=== PATIENT | female | born 1970 | race Caucasian/White ===

== ENCOUNTER 2023-06-19 19:54 | Emergency (ER) | payer OTHER, SELFPAY ==
[2023-06-19 20:05] VITALS: BP 114/86
[2023-06-19 22:16] VITALS: BP 151/97
--- NOTE | 2023-06-19 23:03 | ED.GENMED ---
History of Present Illness
General
Chief Complaint: Sleep Disturbances
Source: patient and previous hospital records (Previous ED visits/psychiatry consult 2023 patient presented with acute psychosis-involuntary psychiatric commitment.)
Exam Limitations: none
Time Seen by Provider: 06/19/23 22:13
Nursing documentation reviewed up to this point in time: agreed with
Travel History
Have you had any contact with someone who has COVID-19?: No
Do you have any symptoms of coronavirus? Fever > 100 degrees, chills, cough, shortness of breath, sore throat, loss of taste or smell, muscle aches, or headache?: No
History of Present Illness
History of Present Illness:
This is a 52-year-old woman who has history of schizoaffective disorder, prior episodes of manic behavior/acute psychosis requiring involuntary psychiatric hospitalization January 2020.
She does follow with a psychiatrist, maintained on Wellbutrin and Depakote but has not been following with her therapist for the past several months and admits to significant ongoing stress which she attributes to work-related stress as she works
full-time as a CPA. She admits to increased anxiety over the past several days with inability to sleep for the past 3 days. She has reached out to her therapist and has an online counseling session scheduled for Tuesday, June 21.
She presents tonight with complaints of generalized fatigue, overall not feeling well, poor sleep as well as ongoing significant stress.
She has history of hyperlipidemia, hypertension, hypothyroidism, chronic kidney disease. Maintained on atorvastatin, labetalol, levothyroxine. She states she has been compliant with all medications.
Reports following every 6 months with PCP for routine lab studies with next appointment scheduled for July 05.
She denies alcohol nor drug use.
Past History
Past History
ED Past Medical History: Cancer (Basal cell carcinoma anterior chest wall), HTN, Hypercholesterolemia, Renal failure (Chronic kidney disease), Hypothyroidism and Psychiatric (Bipolar illness/schizoaffective disorder); Negative Arrthythmia
ED Past Surgical History: , Orthopedic (Elbow) and Other (Basal cell carcinoma removal anterior chest wall)
Social History
Tobacco: Non-smoker
Alcohol: Occasional (Very rare alcohol use)
Drug: None
Personal:
Living: with family
Employment: Employed
Family History
Family History: Cancer (Father of cancer) and Other (Noncontributory)
Phy Exam
Physical Exam
Physical Exam:
GENERAL: 52-year-old woman appears her stated age, awake and alert she is moderately irritable with significantly labile emotions, tangential and scattered thought processes. Speaks in an exaggerated manner. Intermittently angry and agitated while
discussing recent as well as post world events but does not appear paranoid nor delusional. She is somewhat redirectable.
Initial vital signs reviewed. Temperature reported at 99 �F. Upon recheck she is afebrile 98.4 �F.
EYE: pupils equal and reactive. anicteric
NECK: Supple, nontender, no meningismus, no significant adenopathy.
ENT: posterior pharynx is clear, oral mucosa is moist. TM clear b/l, nares patent.
CARDIAC: Regular rate and rhythm. no murmur.
LUNGS: Clear breath sounds bilaterally, no acute respiratory distress, no wheezes/rales/rhonchi
ABDOMEN: Soft, nondistended, without focal tenderness, normoactive BS.
NEUROLOGICAL: Alert and oriented x3, no focal neuro deficits. Gait is peralta and steady.
SKIN: Warm and dry, normal color, skin intact. No rash.
MUSCULOSKELETAL: No C/C/E. peripheral pulses are full and equal b/l. No palpable tenderness.
PSYCH: Intermittently anxious and agitated with labile emotions, tangential and scattered thought processes. Speaks in an exaggerated manner. No evidence of hallucinations nor delusions.
Course
Orders/Labs/Results
Orders:
Orders
06/19/23 22:39
Lorazepam [Ativan] 2 mg PO NOW STA
06/19/23 22:40
Urinalysis Reflex To Culture Urgent
Date Specimen was Collected: 06/20/23
Time Specimen was Collected: 01:52
Urine Drug Abuse Screen Urgent
Date Specimen was Collected: 06/20/23
Time Specimen was Collected: 01:52
06/19/23 22:56
Lorazepam [Ativan] 2 mg PO NOW STA
06/19/23 23:08
Alcohol Urgent
Complete Blood Count/With Diff Urgent
Comprehensive Metabolic Panel Urgent
Depakane Urgent
TSH Reflex To Free T4 Urgent
06/20/23 01:50
Lorazepam [Ativan] 2 mg .ROUTE .STK-MED ONE
06/20/23 01:53
Lorazepam [Ativan] 2 mg PO NOW STA
06/20/23 01:54
Lorazepam [Ativan] 2 mg PO NOW STA
06/20/23 06:22
PSYCHIATRY CONSULT Urgent
Consulting Provider: Agustín Singh
Was physician already notified: Yes
Abnormal Lab Results
06/19/23 06/20/23
23:08 01:55
RBC 4.05 L 10^6/uL
(4.20-5.40)
Hgb 11.7 L g/dL
(12.0-16.0)
Hct 32.2 L %
(37.0-47.0)
MCV 79.5 L fL
(81.0-99.0)
Absolute Monos (auto) 0.8 H 10^3/uL
(0.1-0.6)
Monocytes % 10.1 H %
(1.7-9.3)
BUN 23 H mg/dl
(7-17)
Creatinine 1.2 H mg/dL
(0.6-1.0)
Urine Ketones Trace A
(Negative)
Valproic Acid 42.7 L ug/ml
(50.0-120.0)
06/19/23 23:08
06/19/23 23:08
Vital Signs
Initial and Last Documented VS:
Initial Vital Signs
Temp Pulse Resp BP Pulse Ox
99 F 78 22 114/86 98
06/19/23 20:05 06/19/23 20:05 06/19/23 20:05 06/19/23 20:05 06/19/23 20:05
Last Documented Vital Signs
Temp Pulse Resp BP Pulse Ox
98.2 F 75 18 100/65 96
06/20/23 03:09 06/20/23 13:27 06/20/23 13:27 06/20/23 13:27 06/20/23 13:27
MDM/Problems Addressed
Differential Diagnosis Includes:
Concern for recurrent bipolar isak/schizoaffective disorder. Other consideration is hyper/hypothyroidism, electrolyte abnormality.
Will check labs including thyroid functions, Depakote level.
Patient agreeable to a dose of Ativan.
She is intermittently agitated with scattered thought processes but denies suicidal thoughts or plan and does not appear to exhibit any paranoia nor delusions.
She has driven herself to the hospital. She is alone.
I have offered crisis consult which she currently declines. At this point she does not feel she requires urgent psychiatric intervention.
At this point, patient does not appear to be a danger to herself nor others.
Will continue to observe.
Chronic conditions affecting care: Psychiatric illness, Kidney disease and Other (Hypothyroidism)
*Critical Care Note
Total Time (30-74mins, 75-104mins- exclusive of procedures): Not Applicable
Update Note
Update Note:
Patient has been sleeping after oral dose of Ativan.
Labs show very mild but stable anemia. Mildly elevated creatinine of 1.2, similar sporadic elevations noted previously. TSH is normal at 3.21. Urinalysis is unremarkable, UDS is negative.
Valproic acid is slightly subtherapeutic at 42.7. EtOH is negative.
Due to significant concern for acute isak I have placed a consult for psychiatry for this morning. [facility] aware of consult.
ED Attending Note
-
Portions of this chart may have been created with voice recognition software.� Occasional wrong word or��sound alike� substitutions may have occurred due to the inherent limitations of voice recognition software.
Discharge Plan
Departure
Patient Disposition: Home (Routine Discharge)
Date of Disposition: 06/20/23
Time of Disposition: 12:58
Patient with high blood pressure during this ER visit?: No
Condition: Good
Discharge Problem:
Bipolar 1 disorder with moderate isak, Acute insomnia
Prescriptions:
No Action
levothyroxine 50 MCG tablet
50 mcg PO DAILY
atorvastatin 20 MG tablet
20 mg PO DAILY
labetalol 100 MG tablet
100 mg PO BID
bupropion HCl 150 mg Tablet Extended Release 24 Hr
150 mg PO HS
Referrals:
Nadir Connors I., DO [Family Provider] -
Activity Restrictions/Additional Instructions:
You were seen by our psychiatrist, Dr. Spencer. Follow-up with your psychiatrist as outpatient.
Interventions
Interventions:
*Risk Screen - Suicide Last Done: 06/19/23 20:05
*General Assessment Last Done: 06/20/23 02:10
*Neglect/Abuse Screening Last Done: 06/19/23 20:05
ED- Fall Risk Assessment Last Done: 06/20/23 08:42
*ED COVID-19 Vaccine History Last Done: 06/20/23 02:10
*Nursing Disposition Last Done: 06/20/23 13:27
ED-Suicide Risk Assessment Last Done: 06/20/23 02:41
ED- Neurological Assessment Last Done: 06/20/23 03:09
ED-Psychological Assessment Last Done: 06/19/23 22:23
Discharge Date and Time
Discharge Date/Time: 06/20/23 13:29
Print Language: COLOMBIAN
[2023-06-19 23:16] LABS: % Basophils 1.1 % (0-2); % Eosinophils 1.5 % (0-6); % Immature Granulocytes 0.3 % (0-0.5); % Lymphocytes 30.1 % (20.5-51.1); % Monocytes 10.1 % (1.7-9.3); % Neutrophils 56.9 % (42.2-75.2); Absolute Basophils 0.1 10^3/uL (0-0.2); Absolute Eosinophils 0.1 10^3/uL (0-0.7); Absolute Lymphocytes 2.2 10^3/uL (1.2-3.4); Absolute Monocytes 0.8 10^3/uL (0.1-0.6); Absolute Neutrophils 4.2 10^3/uL (1.4-6.5); Hematocrit 32.2 % (37.0-47.0); Hemoglobin 11.7 g/dL (12.0-16.0); Mean Corp Hgb Conc. 36.3 g/dL (33.0-37.0); Mean Corpuscular Hgb 28.9 pg (27.0-31.0); Mean Corpuscular Volume 79.5 fL (81.0-99.0); Mean Platelet Volume 9.7 fL (7.4-10.4); Nucleated Red Blood Cells % 0 %; Platelet Count 208 10^3/uL (130-400); Red Blood Cell Count 4.05 10^6/uL (4.20-5.40); White Blood Cell Count 7.4 10^3/uL (4.8-10.8)
[2023-06-19 23:40] LABS: ALT (SGPT) 23 U/L (0-35); AST (SGOT) 34 U/L (14-36); Albumin 4.7 g/dl (3.5-5.0); Alkaline Phosphatase 84 U/L (38-126); Blood Urea Nitrogen 23 mg/dl (7-17); Calcium 10.1 mg/dl (8.4-10.2); Carbon Dioxide 22 mmol/L (22-30); Chloride 104 mmol/L (98-107); Glucose 86 mg/dl (70-99); Potassium 3.6 mmol/L (3.5-5.1); Sodium 136 mmol/L (135-145); Total Bilirubin 1.2 mg/dl (0.2-1.3); Total Protein 6.9 g/dl (6.3-8.2); eGFR 53.79
[2023-06-19 23:43] LABS: Depakane 42.7 ug/ml (50.0-120.0)
[2023-06-19 23:49] LABS: Alcohol None Detected
[2023-06-20 00:09] LABS: TSH Reflex To Free T4 3.21 uIU/ml (0.47-4.68)
[2023-06-20 01:10] VITALS: BP 143/90
[2023-06-20] MEDS: ATIVAN 2 MG PO (01:54)
[2023-06-20 02:00] LABS: Urine Albumin Negative (Neg - Trace); Urine Bilirubin Negative (Negative); Urine Character Clear (Clear); Urine Color Yellow; Urine Glucose Negative (Negative); Urine Ketone Trace (Negative); Urine Leukocyte Negative (Negative); Urine Nitrite Negative (Negative); Urine Occult Blood Negative (Negative); Urine Urobilinogen Negative (Neg - 1+)
[2023-06-20 02:08] VITALS: BP 120/79
[2023-06-20 02:41] VITALS: BMI 33.8
[2023-06-20 02:51] LABS: Amphetamines Negative (Negative); Barbiturates Negative (Negative); Benzodiazepines Negative (Negative); Buprenorphine Negative (Negative); Cocaine Negative (Negative); Marijuana Negative (Negative); Methadone Negative (Negative); Methamphetamines Negative (Negative); Opiates Negative (Negative); Phencyclidine Negative (Negative); Tricyclic Antidepressants Negative (Negative)
[2023-06-20 03:09] VITALS: BP 133/62
[2023-06-20 04:00] VITALS: BP 99/63
[2023-06-20 06:00] VITALS: BP 91/64
--- NOTE | 2023-06-20 10:40 | CS.PSYCHR ---
Consult Summary - Psychiatry
-
Pt is 52 yo female with history of Bipolar d/o, who presented with insomnia for several nights, affective instability, c/o excess stress. Pt reports she sees a private psychiatrist, is on Depakote ER and Wellbutrin. VPA level at 11 pm last night
was 42.7; pt states she takes Depakote ER 500 mg at HS. Pt was given Ativan 2 mg overnight. Today, pt alert, oriented, answering questions, mostly goal-directed, with no signs of acute isak or psychosis. Pt asking for food and fluids. She talks
about stress with job and family demands.
Psych Hx: Bipolar d/o, diagnosed in 1985 per pt, with hx of isak. [facility] outpatient psychiatrist at [facility]. Prescribed Depakote ER and Wellbutrin
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
MSE: alert, oriented, speech coherent, thought clear, mildly tangential off and on, no signs of psychosis. Affect appropriate, stable, no signs of acute isak. Insight appears intact
Imp: Bipolar d/o by hx, recent stress and insomnia, leading to mild affective instability
Rec: Return to Outpatient psychiatric follow-up, should see as soon as possible, also contact them for their sleep med recommendations. Temporary sleep med- Ativan 1 to 2 mg HS would be reasonable upon discharge.
[2023-06-20 13:27] VITALS: BP 100/65
== END 2023-06-20 13:29 | disposition home or self-care (01) ==
LOC: EMR 19:54
PROVIDERS: CONSULT PHYSICIAN Psychiatry & Neurology Psychiatry; EMERGENCY PHYSICIAN Emergency Medicine; FAMILY PHYSICIAN Internal Medicine
DX: F31.9 Bipolar disorder, unspecified (principal); G47.00 Insomnia, unspecified; R53.83 Other fatigue; R45.1 Restlessness and agitation; Z73.3 Stress, not elsewhere classified; F25.9 Schizoaffective disorder, unspecified; E03.9 Hypothyroidism, unspecified; D64.9 Anemia, unspecified; F41.9 Anxiety disorder, unspecified; E78.00 Pure hypercholesterolemia, unspecified; I12.9 Hypertensive chronic kidney disease with stage 1 through stage 4 chronic kidney disease, or unspecified chronic kidney disease; N18.9 Chronic kidney disease, unspecified; Z85.828 Personal history of other malignant neoplasm of skin; Z79.899 Other long term (current) drug therapy; Z91.030 Bee allergy status; Z88.8 Allergy status to other drugs, medicaments and biological substances; Z91.018 Allergy to other foods
CPT/HCPCS: 99284; 80053; 80164; 80306; 81003; 82077; 84443; 85025

== ENCOUNTER 2023-06-20 19:59 | Emergency (ER) | payer OTHER, SELFPAY ==
[2023-06-20 20:04] VITALS: BP 144/90
--- NOTE | 2023-06-20 21:16 | ED.GENMED ---
History of Present Illness
General
Chief Complaint: Psychiatric Problem
Source: patient
Exam Limitations: none
Time Seen by Provider: 06/20/23 20:46
Nursing documentation reviewed up to this point in time: agreed with
Travel History
Have you had any contact with someone who has COVID-19?: No
Do you have any symptoms of coronavirus? Fever > 100 degrees, chills, cough, shortness of breath, sore throat, loss of taste or smell, muscle aches, or headache?: No
History of Present Illness
History of Present Illness:
52-year-old female with a past medical history of hypertension, hyperlipidemia, hypothyroidism, bipolar disorder, anxiety and depression who presents to the emergency room for evaluation of insomnia; she is also requesting assessment because of a
minor head trauma. Patient was notably seen in this emergency room last night for inability to sleep and mood instability. She was seen by psychiatry and ultimately was discharged with Ativan as needed for insomnia and close outpatient psychiatric
follow-up. Patient says that she still has been unable to sleep since leaving the hospital and feels that she is 'a bit hyperactive.' She says she is having difficulty focusing. She does admit that she has had this issue with carla in the past.
She denies hallucinations, suicidal ideation, homicidal ideation. She denies drug or alcohol use. She is also requesting assessment for minor head trauma�she says that she was unpacking a bag in her closet when she went home and when she stood up
she hit her head on a copper bar. No loss of consciousness. She had a minor abrasion to the scalp that bled a bit. She is not on blood thinners. Denies any other injuries or complaints.
Past History
Past History
ED Past Medical History: Cancer (Basal cell carcinoma anterior chest wall), HTN, Hypercholesterolemia, Renal failure (Chronic kidney disease), Hypothyroidism and Psychiatric (Bipolar illness/schizoaffective disorder); Negative Arrthythmia
ED Past Surgical History: , Orthopedic (Elbow) and Other (Basal cell carcinoma removal anterior chest wall)
Social History
Tobacco: Non-smoker
Alcohol: Occasional (Very rare alcohol use)
Drug: None
Personal:
Living: with family
Employment: Employed
Family History
Family History: Cancer (Father of cancer) and Other (Noncontributory)
Review of Systems
Review of Systems
All Other Systems: ROS reviewed and negative except as documented in HPI and ROS
Respiratory: Denies trouble breathing
Cardiac: Denies chest pain
ABD/GI: Denies abdominal pain, nausea or vomiting
: Denies flank pain
Musculoskeletal: Denies neck pain or back pain
Neurological: Denies headache, weakness or numbness
Phy Exam
Physical Exam
Physical Exam:
General: Awake, alert, oriented x3; pacing around the room restless, flights of ideas, pressured speech
Head: Normocephalic, minor scalp hematoma on the crown with a tiny abrasion but no laceration
Eyes: Conjunctiva normal
Throat: Airway intact, handling secretions
Neck: Trachea midline, supple without meningismus, full range of motion without pain
Lungs: Breathing comfortably no distress
Heart: Tachycardia
Neuro: Cranial nerves grossly intact, speech fluid, ambulatory with no gross motor or sensory deficit
Skin: no rash
Extremities: Warm and well-perfused, moving all extremities equally
Scores
Heart Failure Risk
Heart Failure Risk Score: Not Applicable
Heart Score for Chest Pain Patients
STEMI patient?: Not applicable
Withdrawal Assessment of Alcohol
Withdrawal Assessment Completed?: Not applicable
Course
Orders/Labs/Results
Orders:
Orders
06/20/23 21:11
Lorazepam [Ativan] 2 mg PO NOW STA
06/20/23 21:15
CT Head W/o Iv Contrast Urgent
Comment:
Reason For Exam: head trauma, headache
Crisis Consult Routine
Reason for Consult: carla
06/20/23 21:27
Lorazepam [Ativan] 2 mg .ROUTE .STK-MED ONE
06/20/23 21:29
Lorazepam [Ativan] 2 mg PO NOW STA
06/20/23 23:50
Tetanus/Diphth/Acelpertussis [Adacel] 0.5 ml IM .ONCE ONE
Vital Signs
Initial and Last Documented VS:
Initial Vital Signs
Temp Pulse Resp BP Pulse Ox
37.2 C 114 24 144/90 98
06/20/23 20:04 06/20/23 20:04 06/20/23 20:04 06/20/23 20:04 06/20/23 20:04
Last Documented Vital Signs
Temp Pulse Resp BP Pulse Ox
37.2 C 114 24 144/90 98
06/20/23 20:04 06/20/23 20:04 06/20/23 20:04 06/20/23 20:04 06/20/23 20:04
MDM/Problems Addressed
Differential Diagnosis Includes:
Carla
MDM/Problems Addressed:
52-year-old female presents to the emergency room after the second time with insomnia�she appears to be acutely manic. She also moderate trauma is requesting assessment�she has a minor abrasion to the scalp and a small scalp hematoma no other
serious injuries normal neurologic exam. Will check CT head in an abundance of caution. Will treat with Ativan as she is quite restless and pressured. Discussed with crisis for evaluation�I suspect she would benefit from inpatient treatment.
CT head negative for any acute. Crisis to the bedside did their assessment patient not suicidal or homicidal but may benefit from inpatient treatment�will discharge over to our crisis center for further discussion and consideration for inpatient
placement for acute carla. Notably she did have improvement with Ativan and actually had some rest here in the emergency room. She was escorted directly to our crisis center.
Chronic conditions affecting care:
Bipolar
*Radiology
Radiology exam reviewed: radiology read reviewed
*Pulse Oximetry
Patient hypoxic: no
*Critical Care Note
Total Time (30-74mins, 75-104mins- exclusive of procedures): Not Applicable
Data Reviewed
Review of Other/Old Records Reveals: Progress Notes (Psychiatry note)
Source: patient and records
Patient Management
Discussion with other providers: Other (Discussed with our crisis staff)
Escalation/DeEscalation of care consider admission/obs:
Discharge to crisis center for placement
ED Attending Note
-
Portions of this chart may have been created with voice recognition software.� Occasional wrong word or��sound alike� substitutions may have occurred due to the inherent limitations of voice recognition software.
Discharge Plan
Departure
Patient Disposition: [facility]
Date of Disposition: 06/21/23
Time of Disposition: 00:15
Patient with high blood pressure during this ER visit?: Yes
Discharge Problem:
Manic behavior, Hematoma of scalp
Prescriptions:
No Action
levothyroxine 50 MCG tablet
50 mcg PO DAILY
atorvastatin 20 MG tablet
20 mg PO DAILY
labetalol 100 MG tablet
100 mg PO BID
bupropion HCl 150 mg Tablet Extended Release 24 Hr
150 mg PO HS
Referrals:
Nadir Connors I., DO [Family Provider] -
Activity Restrictions/Additional Instructions:
YOU ARE BRING DISCHARGED TO OUR CRISIS CENTER TO DISCUSS INPATIENT TREATMENT FOR YOUR SYMPTOMS.
Interventions
Interventions:
*Risk Screen - Suicide Last Done: 06/20/23 21:30
*General Assessment Last Done: 06/20/23 21:30
*Neglect/Abuse Screening Last Done: 06/20/23 21:30
*ED COVID-19 Vaccine History Last Done: 06/20/23 21:30
ED- Neurological Assessment Last Done: 06/20/23 21:30
ED-Psychological Assessment Last Done: 06/20/23 21:30
ED-Skin Assessment Last Done: 06/20/23 21:30
Discharge Date and Time
Print Language: POLISH
[2023-06-20] MEDS: ATIVAN 2 MG PO (21:29)
[2023-06-20 21:30] VITALS: BMI 33.5
[2023-06-21] MEDS: ADACEL 0.5 ML IM (00:20)
[2023-06-21 00:30] VITALS: BP 135/89
== END 2023-06-21 00:36 ==
LOC: EMR 19:59
PROVIDERS: EMERGENCY PHYSICIAN Emergency Medicine; FAMILY PHYSICIAN Internal Medicine
DX: S00.03XA Contusion of scalp, initial encounter (principal); X58.XXXA Exposure to other specified factors, initial encounter; F31.9 Bipolar disorder, unspecified; Z23 Encounter for immunization
CPT/HCPCS: 99284; 90471; 70450; 90715

== ENCOUNTER 2023-06-24 03:02 | Emergency (ER) | payer OTHER, SELFPAY ==
[2023-06-24 03:09] VITALS: BP 136/85; BMI 31.8
[2023-06-24 03:41] LABS: % Basophils 0.8 % (0-2); % Eosinophils 0.8 % (0-6); % Immature Granulocytes 0.5 % (0-0.5); % Lymphocytes 27.7 % (20.5-51.1); % Monocytes 10.4 % (1.7-9.3); % Neutrophils 59.8 % (42.2-75.2); Absolute Basophils 0.1 10^3/uL (0-0.2); Absolute Eosinophils 0.1 10^3/uL (0-0.7); Absolute Lymphocytes 1.8 10^3/uL (1.2-3.4); Absolute Monocytes 0.7 10^3/uL (0.1-0.6); Absolute Neutrophils 3.8 10^3/uL (1.4-6.5); Hematocrit 32.3 % (37.0-47.0); Hemoglobin 11.4 g/dL (12.0-16.0); Mean Corp Hgb Conc. 35.3 g/dL (33.0-37.0); Mean Corpuscular Hgb 28.4 pg (27.0-31.0); Mean Corpuscular Volume 80.3 fL (81.0-99.0); Mean Platelet Volume 9.9 fL (7.4-10.4); Nucleated Red Blood Cells % 0 %; Platelet Count 243 10^3/uL (130-400); Red Blood Cell Count 4.02 10^6/uL (4.20-5.40); Red Cell Dist. Width 12.7 % (11.5-14.5); White Blood Cell Count 6.4 10^3/uL (4.8-10.8)
--- NOTE | 2023-06-24 03:54 | ED.GENMED ---
History of Present Illness
<LILIANA Miramontes - Last Filed: 06/24/23 05:04>
General
Chief Complaint: Crisis Evaluation
Source: patient
Time Seen by Provider: 06/24/23 03:53
Travel History
Have you had any contact with someone who has COVID-19?: No
Do you have any symptoms of coronavirus? Fever > 100 degrees, chills, cough, shortness of breath, sore throat, loss of taste or smell, muscle aches, or headache?: No
History of Present Illness
History of Present Illness:
This is a 52 yo female presenting via EMS for suicidal ideation. She states she has been having a manic episode for the last couple days and has been feeling suicidal, attempting to cut herself with a knife. This suicidal attempt is what brought her
to the ER today. Laceration on L arm, R knee. Notes she started vraylar yesterday.
Past History
<LILIANA Miramontes - Last Filed: 06/24/23 05:04>
Past History
ED Past Medical History: Cancer (Basal cell carcinoma anterior chest wall), HTN, Hypercholesterolemia, Renal failure (Chronic kidney disease), Hypothyroidism and Psychiatric (Bipolar illness/schizoaffective disorder); Negative Arrthythmia
ED Past Surgical History: , Orthopedic (Elbow) and Other (Basal cell carcinoma removal anterior chest wall)
Social History
Tobacco: Non-smoker
Alcohol: Occasional (Very rare alcohol use)
Drug: None
Personal:
Living: with family
Employment: Employed
Family History
Family History: Cancer (Father of cancer) and Other (Noncontributory)
Review of Systems
<LILIANA Miramontes - Last Filed: 06/24/23 05:04>
Review of Systems
Constitutional: Reports no symptoms
Cardiac: Reports no symptoms
Neurological: Reports no symptoms
Phy Exam
<LILIANA Miramontes - Last Filed: 06/24/23 05:04>
General Physical Exam
General Presentation: moderate distress
General age: appears stated age
General Mental: anxious
Psychiatric Exam
Psychiatric Exam: anxious, paranoia and suicidal
Course
<LILIANA Miramontes - Last Filed: 06/24/23 05:04>
Orders/Labs/Results
Orders:
Orders
06/24/23 03:23
CMP [Comprehensive Metabolic Panel] Urgent
Complete Blood Count/With Diff Urgent
06/24/23 04:09
Add On- LAB Urgent
Comments:: alcohol
Tests Added?: yes
06/24/23 05:21
Test Result ONCE
06/24/23 05:23
HCG, Urine Qualitative Screen Urgent
Date Specimen was Collected: 06/24/23
Time Specimen was Collected: 05:21
Urine Drug Abuse Screen Urgent
Date Specimen was Collected: 06/24/23
Time Specimen was Collected: 05:21
Abnormal Lab Results
06/24/23
03:23
RBC 4.02 L 10^6/uL
(4.20-5.40)
Hgb 11.4 L g/dL
(12.0-16.0)
Hct 32.3 L %
(37.0-47.0)
MCV 80.3 L fL
(81.0-99.0)
Absolute Monos (auto) 0.7 H 10^3/uL
(0.1-0.6)
Monocytes % 10.4 H %
(1.7-9.3)
Glucose 103 H mg/dl
(70-99)
Calcium 10.3 H mg/dl
(8.4-10.2)
AST 41 H U/L
(14-36)
06/24/23 03:23
06/24/23 03:23
Vital Signs
Initial and Last Documented VS:
Initial Vital Signs
Temp Pulse Resp BP Pulse Ox
98.5 F 87 16 136/85 96
06/24/23 03:09 06/24/23 03:09 06/24/23 03:09 06/24/23 03:09 06/24/23 03:09
Last Documented Vital Signs
Temp Pulse Resp BP Pulse Ox
98.5 F 87 16 136/85 96
06/24/23 03:09 06/24/23 03:09 06/24/23 03:09 06/24/23 03:09 06/24/23 03:09
<Tirso Kincaid, DO - Last Filed: 06/24/23 05:58>
Orders/Labs/Results
Orders:
Orders
06/24/23 03:23
CMP [Comprehensive Metabolic Panel] Urgent
Complete Blood Count/With Diff Urgent
06/24/23 04:09
Add On- LAB Urgent
Comments:: alcohol
Tests Added?: yes
06/24/23 05:21
Test Result ONCE
06/24/23 05:23
HCG, Urine Qualitative Screen Urgent
Date Specimen was Collected: 06/24/23
Time Specimen was Collected: 05:21
Urine Drug Abuse Screen Urgent
Date Specimen was Collected: 06/24/23
Time Specimen was Collected: 05:21
Abnormal Lab Results
06/24/23
03:23
RBC 4.02 L 10^6/uL
(4.20-5.40)
Hgb 11.4 L g/dL
(12.0-16.0)
Hct 32.3 L %
(37.0-47.0)
MCV 80.3 L fL
(81.0-99.0)
Absolute Monos (auto) 0.7 H 10^3/uL
(0.1-0.6)
Monocytes % 10.4 H %
(1.7-9.3)
Glucose 103 H mg/dl
(70-99)
Calcium 10.3 H mg/dl
(8.4-10.2)
AST 41 H U/L
(14-36)
06/24/23 03:23
06/24/23 03:23
Vital Signs
Initial and Last Documented VS:
Initial Vital Signs
Temp Pulse Resp BP Pulse Ox
98.5 F 87 16 136/85 96
06/24/23 03:09 06/24/23 03:09 06/24/23 03:09 06/24/23 03:09 06/24/23 03:09
Last Documented Vital Signs
Temp Pulse Resp BP Pulse Ox
98.5 F 87 16 136/85 96
06/24/23 03:09 06/24/23 03:09 06/24/23 03:09 06/24/23 03:09 06/24/23 03:09
<LILIANA Miramontes - Last Filed: 06/24/23 05:04>
MDM/Problems Addressed
Differential Diagnosis Includes:
Suicidal Ideation
<LILIANA Miramontes - Last Filed: 06/24/23 05:04>
*Critical Care Note
Total Time (30-74mins, 75-104mins- exclusive of procedures): Not Applicable
ED Attending Note
<LILIANA Miramontes - Last Filed: 06/24/23 05:04>
-
Portions of this chart may have been created with voice recognition software.� Occasional wrong word or��sound alike� substitutions may have occurred due to the inherent limitations of voice recognition software.
<Tirso Kincaid DO - Last Filed: 06/24/23 05:58>
ED Attending Note
Patient seen and examined by attending physician: Yes
I performed the substantive portion of visit, reviewed & personally made and approve the management plan that is documented in note by myself or AMBROSE.: Yes
ED Attending Note:
Pleasant 52-year-old female who voluntarily came to the ER with suicidal ideation. She states that she is having a manic episode and injured herself. She has a small superficial laceration to the left thumb and an abrasion on the right knee. Both
of which were cleaned thoroughly at the emergency department and found to need no stitches. Patient signed a 201 and is voluntarily wanting to go into the hospital. Denies alcohol or drug use. Reports no fever, chills, chest pain, or shortness of
breath. Patient was seen in conjunction with the PA student. I have reviewed and agree with the history and treatment plan presented. On my independent physical exam, patient is awake, alert, and oriented x3, no acute distress moves all 4
extremities. She is ambulating around the room. She has a small superficial abrasion to the right knee and a small superficial laceration to the left arm.
Discharge Plan
Departure
Patient Disposition: Psych Facility
Date of Disposition: 06/24/23
Time of Disposition: 05:35
Patient Status:: 201
Patient with high blood pressure during this ER visit?: Yes
Condition: Good
Discharge Problem:
Suicidal ideation, Abrasion
Instructions: BLOOD PRESSURE, Wound Care ED, Anxiety, Adult (DC)
Prescriptions:
No Action
levothyroxine 50 MCG tablet
50 mcg PO DAILY
atorvastatin 20 MG tablet
20 mg PO DAILY
labetalol 100 MG tablet
100 mg PO BID
bupropion HCl 150 mg Tablet Extended Release 24 Hr
150 mg PO HS
Referrals:
UNKNOWN - PT NOT,INTERVIEWE [Family Provider] -
Shimon,Preston [Active] - As needed
Interventions
Interventions:
*Risk Screen - Suicide Last Done: 06/24/23 03:09
*General Assessment Last Done: 06/24/23 03:09
*Neglect/Abuse Screening Last Done: 06/24/23 03:09
ED- Fall Risk Assessment Last Done: 06/24/23 03:09
*ED COVID-19 Vaccine History Last Done: 06/24/23 03:09
ED-Psychological Assessment Last Done: 06/24/23 03:09
Discharge Date and Time
Print Language: OMANI
[2023-06-24 03:56] LABS: ALT (SGPT) 33 U/L (0-35); AST (SGOT) 41 U/L (14-36); Albumin 4.5 g/dl (3.5-5.0); Alkaline Phosphatase 79 U/L (38-126); Blood Urea Nitrogen 12 mg/dl (7-17); Calcium 10.3 mg/dl (8.4-10.2); Carbon Dioxide 28 mmol/L (22-30); Chloride 103 mmol/L (98-107); Estimated Creatinine Clearance 60 ml/min; Glucose 103 mg/dl (70-99); Potassium 3.5 mmol/L (3.5-5.1); Sodium 138 mmol/L (135-145); Total Bilirubin 0.9 mg/dl (0.2-1.3); Total Protein 6.7 g/dl (6.3-8.2); eGFR > 60.00
[2023-06-24 05:37] LABS: HCG, Urine Qualitative Screen Negative
[2023-06-24 05:45] LABS: Amphetamines Negative (Negative); Barbiturates Negative (Negative); Benzodiazepines Negative (Negative); Buprenorphine Negative (Negative); Cocaine Negative (Negative); Marijuana Negative (Negative); Methadone Negative (Negative); Methamphetamines Negative (Negative); Opiates Negative (Negative); Phencyclidine Negative (Negative); Tricyclic Antidepressants Negative (Negative)
[2023-06-24 09:10] VITALS: BP 129/88
--- NOTE | 2023-06-24 09:18 | PHANOTE ---
06/24/2023, [employer] rec tech, used pharmacy fill data to compile a list of pt.'s meds.; pt. does not have recent [facility] records and I could not reach pt.'s primary contact (brother) to obtain pt.'s med. history.
[2023-06-24] MEDS: ATIVAN 1 MG PO (09:29)
[2023-06-24] MEDS: TRANDATE 100 MG PO (09:29)
[2023-06-24 11:30] VITALS: BP 124/72
== END 2023-06-24 12:43 ==
LOC: EMR 03:02
PROVIDERS: Student in an Organized Health Care Education/Training Program; EMERGENCY PHYSICIAN Emergency Medicine
DX: R45.851 Suicidal ideations (principal); S61.012A Laceration without foreign body of left thumb without damage to nail, initial encounter; S80.211A Abrasion, right knee, initial encounter; X78.1XXA Intentional self-harm by knife, initial encounter; E78.00 Pure hypercholesterolemia, unspecified; E03.9 Hypothyroidism, unspecified; I12.9 Hypertensive chronic kidney disease with stage 1 through stage 4 chronic kidney disease, or unspecified chronic kidney disease; N18.9 Chronic kidney disease, unspecified; F25.9 Schizoaffective disorder, unspecified; F31.9 Bipolar disorder, unspecified; Z85.828 Personal history of other malignant neoplasm of skin; Z91.030 Bee allergy status; Z88.8 Allergy status to other drugs, medicaments and biological substances; Z91.048 Other nonmedicinal substance allergy status
CPT/HCPCS: 99285; 80053; 80306; 81025; 85025

== ENCOUNTER 2023-07-06 22:36 | Emergency (ER) | payer OTHER, SELFPAY ==
[2023-07-06 22:39] VITALS: BP 117/76
[2023-07-06 22:40] VITALS: BP 117/76; BMI 34.3
[2023-07-06 22:54] LABS: % Basophils 1.2 % (0-2); % Eosinophils 2.5 % (0-6); % Immature Granulocytes 0.2 % (0-0.5); % Lymphocytes 27.5 % (20.5-51.1); % Monocytes 13.7 % (1.7-9.3); % Neutrophils 54.9 % (42.2-75.2); Absolute Basophils 0.1 10^3/uL (0-0.2); Absolute Eosinophils 0.1 10^3/uL (0-0.7); Absolute Lymphocytes 1.4 10^3/uL (1.2-3.4); Absolute Monocytes 0.7 10^3/uL (0.1-0.6); Absolute Neutrophils 2.8 10^3/uL (1.4-6.5); Hemoglobin 10.6 g/dL (12.0-16.0); Mean Corp Hgb Conc. 35.3 g/dL (33.0-37.0); Mean Corpuscular Hgb 29.1 pg (27.0-31.0); Mean Corpuscular Volume 82.4 fL (81.0-99.0); Mean Platelet Volume 10.1 fL (7.4-10.4); Nucleated Red Blood Cells % 0 %; Platelet Count 181 10^3/uL (130-400); Red Blood Cell Count 3.64 10^6/uL (4.20-5.40); Red Cell Dist. Width 13.2 % (11.5-14.5); White Blood Cell Count 5.2 10^3/uL (4.8-10.8)
[2023-07-06 23:00] VITALS: BP 97/59
--- NOTE | 2023-07-06 23:07 | ED.GENMED ---
History of Present Illness
General
Chief Complaint: Dizziness
Time Seen by Provider: 07/06/23 22:41
Travel History
Have you had any contact with someone who has COVID-19?: No
Do you have any symptoms of coronavirus? Fever > 100 degrees, chills, cough, shortness of breath, sore throat, loss of taste or smell, muscle aches, or headache?: No
History of Present Illness
History of Present Illness:
52-year-old female with history of hypertension, hyperlipidemia, PTSD, and bipolar disorder presents to the emergency department for evaluation of fatigue and drowsiness. She states the symptoms began after taking her normal nighttime dose of
paliperidone and Ambien. Both these medications are new within the past 2 weeks. She states to me that she thinks she was poisoned. She states her mouth feels dry. Denies any hallucinations or pain
Past History
Past History
ED Past Medical History: Cancer (Basal cell carcinoma anterior chest wall), HTN, Hypercholesterolemia, Renal failure (Chronic kidney disease), Hypothyroidism and Psychiatric (Bipolar illness/schizoaffective disorder); Negative Arrthythmia
ED Past Surgical History: , Orthopedic (Elbow) and Other (Basal cell carcinoma removal anterior chest wall)
Social History
Tobacco: Non-smoker
Alcohol: Occasional (Very rare alcohol use)
Drug: None
Personal:
Living: with family
Employment: Employed
Family History
Family History: Cancer (Father of cancer) and Other (Noncontributory)
Review of Systems
Review of Systems
Allergies reviewed?: Yes
All Other Systems: ROS reviewed and negative except as documented in HPI and ROS
Phy Exam
Physical Exam
Physical Exam:
GEN: Somnolent, arouses easily, no distress
HEENT: Oral mucosa moist, no scleral icterus
Cardiac: Regular rate
Lung: No respiratory distress, no tachypnea
MSK: No gross deformity or injuries
Skin: Good color, no pallor or jaundice, no rashes
Neuro: Somnolent but arouses easily, moves all extremities freely, no clonus, normal extraocular motion
Psych: Calm, cooperative
Course
Orders/Labs/Results
Orders:
Orders
07/06/23 22:49
Complete Blood Count/With Diff Urgent
Comprehensive Metabolic Panel Urgent
Abnormal Lab Results
07/06/23
22:49
RBC 3.64 L 10^6/uL
(4.20-5.40)
Hgb 10.6 L g/dL
(12.0-16.0)
Hct 30.0 L %
(37.0-47.0)
Absolute Monos (auto) 0.7 H 10^3/uL
(0.1-0.6)
Monocytes % 13.7 H %
(1.7-9.3)
07/06/23 22:49
07/06/23 22:49
Vital Signs
Initial and Last Documented VS:
Initial Vital Signs
BP
117/76
07/06/23 22:39
Last Documented Vital Signs
Temp Pulse Resp BP Pulse Ox
98.4 F 84 16 106/62 97
07/06/23 22:40 07/07/23 00:45 07/07/23 00:45 07/07/23 00:45 07/07/23 00:30
MDM/Problems Addressed
MDM/Problems Addressed:
Labs are unremarkable. Patient symptoms gradually improved the emergency department. Likely polypharmacy
*Critical Care Note
Total Time (30-74mins, 75-104mins- exclusive of procedures): Not Applicable
ED Attending Note
-
Portions of this chart may have been created with voice recognition software.� Occasional wrong word or��sound alike� substitutions may have occurred due to the inherent limitations of voice recognition software.
Discharge Plan
Departure
Patient Disposition: Home (Routine Discharge)
Date of Disposition: 07/07/23
Time of Disposition: 00:42
Patient with high blood pressure during this ER visit?: No
Discharge Problem:
Somnolence
Instructions: Fatigue (DC)
Prescriptions:
No Action
levothyroxine 50 MCG tablet
50 mcg PO MOTUWETHFR
atorvastatin 20 MG tablet
20 mg PO DAILY
labetalol 100 MG tablet
100 mg PO BID
bupropion HCl 150 mg Tablet Sustained-Release 12 Hr
150 mg PO DAILY
levothyroxine 50 mcg Tablet
100 mcg PO SUSA
divalproex 250 mg Tablet Extended Release 24 Hr
250 mg PO BID
Ozempic 0.25 mg or 0.5 mg (2 mg/3 mL) Pen Injector
0.5 mg SC QWEEK
Referrals:
UNKNOWN - PT DOES,NOT KNOW [Family Provider] -
Interventions
Interventions:
*Risk Screen - Suicide Last Done: 07/06/23 22:40
*General Assessment Last Done: 07/06/23 22:40
*Neglect/Abuse Screening Last Done: 07/06/23 22:40
ED- Fall Risk Assessment Last Done: 07/07/23 00:49
*ED COVID-19 Vaccine History Last Done: 07/06/23 22:40
*Nursing Disposition Last Done: 07/07/23 00:49
ED- Neurological Assessment Last Done: 07/06/23 22:48
Discharge Date and Time
Discharge Date/Time: 07/07/23 01:16
Print Language: CITIZEN OF [place]
[2023-07-06 23:08] LABS: ALT (SGPT) 27 U/L (0-35); AST (SGOT) 27 U/L (14-36); Albumin 4.2 g/dl (3.5-5.0); Alkaline Phosphatase 75 U/L (38-126); Blood Urea Nitrogen 14 mg/dl (7-17); Calcium 9.5 mg/dl (8.4-10.2); Carbon Dioxide 29 mmol/L (22-30); Chloride 102 mmol/L (98-107); Estimated Creatinine Clearance 63 ml/min; Glucose 99 mg/dl (70-99); Potassium 4.1 mmol/L (3.5-5.1); Sodium 135 mmol/L (135-145); Total Bilirubin 0.6 mg/dl (0.2-1.3); Total Protein 6.3 g/dl (6.3-8.2); eGFR > 60.00
[2023-07-07] VITALS: BP 94/54
[2023-07-07 00:45] VITALS: BP 106/62
== END 2023-07-07 01:16 | disposition home or self-care (01) ==
LOC: EMR 22:36
PROVIDERS: Physician Assistant; EMERGENCY PHYSICIAN Emergency Medicine
DX: R40.0 Somnolence (principal); I12.9 Hypertensive chronic kidney disease with stage 1 through stage 4 chronic kidney disease, or unspecified chronic kidney disease; N18.9 Chronic kidney disease, unspecified; E78.00 Pure hypercholesterolemia, unspecified; E03.9 Hypothyroidism, unspecified; F25.9 Schizoaffective disorder, unspecified; F31.9 Bipolar disorder, unspecified; F43.10 Post-traumatic stress disorder, unspecified; Z85.828 Personal history of other malignant neoplasm of skin
CPT/HCPCS: 99283; 80053; 85025

== ENCOUNTER 2024-05-21 07:31 | Emergency (ER) | payer OTHER, SELFPAY ==
[2024-05-21 07:35] VITALS: BP 156/89
--- NOTE | 2024-05-21 08:35 | ED.GENMED ---
History of Present Illness
General
Chief Complaint: Abdominal Pain
Source: patient
Time Seen by Provider: 05/21/24 08:27
History of Present Illness
History of Present Illness:
53-year-old female with past medical history of hypertension, hyperlipidemia, PTSD/anxiety/bipolar disorder presenting to the emergency department for evaluation of right lower quadrant abdominal pain that began 2 days ago and has been constant
since described to be a dull aching sensation/twisting sensation, nonradiating. No exacerbating or alleviating factors. Denies any history of similar. There are no other associated symptoms other than some mild constipation but patient states
that she normally gets this from some of the chronic medications she takes. She denies any fevers, chills, rigors, nausea, vomiting, urinary symptoms, back/flank pain. Patient states only surgical history on her abdomen is 2 previous
sections. Social history is noncontributory.
Past History
Past History
ED Past Medical History: Cancer (Basal cell carcinoma anterior chest wall), HTN, Hypercholesterolemia, Renal failure (Chronic kidney disease), Hypothyroidism and Psychiatric (Bipolar illness/schizoaffective disorder); Negative Arrthythmia
ED Past Surgical History: , Orthopedic (Elbow) and Other (Basal cell carcinoma removal anterior chest wall)
Social History
Tobacco: Non-smoker
Alcohol: Occasional (Very rare alcohol use)
Drug: None
Personal:
Living: with family
Employment: Employed
Family History
Family History: Cancer (Father of cancer) and Other (Noncontributory)
Review of Systems
Review of Systems
All Other Systems: ROS reviewed and negative except as documented in HPI and ROS
Phy Exam
Physical Exam
Physical Exam:
GENERAL: Alert , in no apparent distress
EYE: clear conjunctiva b/l
HEAD: NCAT
ENT: mmm.
CARDIAC: Regular rate and rhythm .
LUNGS: Clear breath sounds bilaterally, no acute respiratory distress, no wheezes/rales/rhonchi
ABDOMEN: Soft, mild tenderness within the right lower quadrant, no r/g, no cvat
NEUROLOGICAL: Alert and oriented
SKIN: Warm and dry, skin intact.
MUSCULOSKELETAL: well perfused.
PSYCH: Normal and appropriate interaction.
Scores
Heart Failure Risk
Heart Failure Risk Score: Not Applicable
Heart Score for Chest Pain Patients
STEMI patient?: Not applicable
Withdrawal Assessment of Alcohol
Withdrawal Assessment Completed?: Not applicable
Course
Orders/Labs/Results
Orders:
Orders
05/21/24 08:35
CT Abd/pel W Iv And Oral Contr Urgent
Comment:
Reason For Exam: RLQ pain
Iohexol [Omnipaque] See Protocol PO NOW STA
05/21/24 08:51
Complete Blood Count/With Diff Urgent
Comprehensive Metabolic Panel Urgent
Lipase Urgent
05/21/24 09:56
Urinalysis Reflex To Culture Urgent
Date Specimen was Collected: 05/21/24
Time Specimen was Collected: 09:55
Abnormal Lab Results
05/21/24
08:51
RBC 3.77 L 10^6/uL
(4.20-5.40)
Hgb 11.3 L g/dL
(12.0-16.0)
Hct 32.8 L %
(37.0-47.0)
Absolute Monos (auto) 0.7 H 10^3/uL
(0.1-0.6)
Monocytes % 11.8 H %
(1.7-9.3)
Carbon Dioxide 31 H mmol/L
(22-30)
Total Protein 6.0 L g/dl
(6.3-8.2)
05/21/24 08:51
05/21/24 08:51
Vital Signs
Initial and Last Documented VS:
Initial Vital Signs
Pulse Resp Pulse Ox
77 16 97
05/21/24 07:32 05/21/24 07:32 05/21/24 07:32
Last Documented Vital Signs
Temp Pulse Resp BP Pulse Ox
98 F 77 16 156/89 97
05/21/24 08:53 05/21/24 07:32 05/21/24 07:32 05/21/24 07:35 05/21/24 07:32
MDM/Problems Addressed
Differential Diagnosis Includes:
Appendicitis, colitis, diverticulitis, ovarian cyst, UTI, renal/ureteral colic, less concern for biliary colic/cholecystitis
MDM/Problems Addressed:
53-year-old female presenting to the ER with 2 days of constant right lower quadrant abdominal pain without any other symptoms. Has not attempted any medications for relief and is currently denying anything for pain presently. Will obtain labs,
urine and CT of the abdomen and pelvis. Reassessment following.
*Radiology
Radiology exam reviewed: radiology read reviewed
*Pulse Oximetry
Patient hypoxic: no
*Critical Care Note
Total Time (30-74mins, 75-104mins- exclusive of procedures): Not Applicable
Comment
Comment:
On multiple reevaluations patient notes her symptoms remain under control. Awaiting CT imaging reports
Patient Management
Escalation/DeEscalation of care consider admission/obs:
Patient CT scan without any acute intra-abdominal pathology. There is a right sided 1.6 cm paraovarian cyst which could explain patient's pain. There is also an incidental finding of a right sided midlung pulmonary nodule. Patient states she was
already aware of the pulmonary nodule again with both follow-up with her primary care provider for this. At this time patient is aware of return precautions. Stable for discharge home.
ED Attending Note
-
Portions of this chart may have been created with voice recognition software.� Occasional wrong word or��sound alike� substitutions may have occurred due to the inherent limitations of voice recognition software.
Discharge Plan
Departure
Patient Disposition: Home (Routine Discharge)
Date of Disposition: 05/21/24
Time of Disposition: 11:51
Patient with high blood pressure during this ER visit?: Yes
Discharge Problem:
Ovarian cyst, Pulmonary nodule, Abdominal pain
Instructions: Abdominal Pain
Prescriptions:
No Action
levothyroxine 50 MCG tablet
50 mcg PO MOTUWETHFR
atorvastatin 20 MG tablet
20 mg PO DAILY
labetalol 100 MG tablet
100 mg PO BID
bupropion HCl 150 mg Tablet Sustained-Release 12 Hr
150 mg PO DAILY
levothyroxine 50 mcg Tablet
100 mcg PO SUSA
divalproex 250 mg Tablet Extended Release 24 Hr
250 mg PO BID
Ozempic 0.25 mg or 0.5 mg (2 mg/3 mL) Pen Injector
0.5 mg SC QWEEK
Referrals:
Nadir Connors I., DO [Family Provider] -
Interventions
Interventions:
*Risk Screen - Suicide Last Done: 05/21/24 08:43
*General Assessment Last Done: 05/21/24 08:44
*Neglect/Abuse Screening Last Done: 05/21/24 08:43
*ED- Fall Risk Assessment Last Done: 05/21/24 08:43
*ED COVID-19 Vaccine History Last Done: 05/21/24 08:43
*Nursing Disposition Last Done: 05/21/24 12:01
FM-Lvsbgd-Hzmejnikfw Assessment Last Done: 05/21/24 09:01
Discharge Date and Time
Discharge Date/Time: 05/21/24 12:03
Print Language: MALT[place]
[2024-05-21] MEDS: OMNIPAQUE 50 ML PO (08:41)
[2024-05-21 08:42] VITALS: BMI 33.5
[2024-05-21 09:10] LABS: % Basophils 1.2 % (0-2); % Immature Granulocytes 0.3 % (0-0.5); % Lymphocytes 21.1 % (20.5-51.1); % Monocytes 11.8 % (1.7-9.3); % Neutrophils 64.6 % (42.2-75.2); Absolute Basophils 0.1 10^3/uL (0-0.2); Absolute Eosinophils 0.1 10^3/uL (0-0.7); Absolute Lymphocytes 1.3 10^3/uL (1.2-3.4); Absolute Monocytes 0.7 10^3/uL (0.1-0.6); Absolute Neutrophils 3.9 10^3/uL (1.4-6.5); Hematocrit 32.8 % (37.0-47.0); Hemoglobin 11.3 g/dL (12.0-16.0); Mean Corp Hgb Conc. 34.5 g/dL (33.0-37.0); Mean Platelet Volume 9.7 fL (7.4-10.4); Nucleated Red Blood Cells % 0 %; Platelet Count 158 10^3/uL (130-400); Red Blood Cell Count 3.77 10^6/uL (4.20-5.40); Red Cell Dist. Width 12.7 % (11.5-14.5)
[2024-05-21 09:21] LABS: ALT (SGPT) 15 U/L (0-35); AST (SGOT) 20 U/L (14-36); Albumin 3.8 g/dl (3.5-5.0); Alkaline Phosphatase 76 U/L (38-126); Blood Urea Nitrogen 13 mg/dl (7-17); Calcium 9.9 mg/dl (8.4-10.2); Carbon Dioxide 31 mmol/L (22-30); Chloride 104 mmol/L (98-107); Estimated Creatinine Clearance 68 ml/min; Glucose 86 mg/dl (70-99); Lipase 133 U/L (23-300); Potassium 3.9 mmol/L (3.5-5.1); Sodium 138 mmol/L (135-145); Total Bilirubin 0.6 mg/dl (0.2-1.3); eGFR > 60.00
[2024-05-21 10:32] LABS: Urine Albumin Negative (Neg - Trace); Urine Bilirubin Negative (Negative); Urine Character Clear (Clear); Urine Color Yellow; Urine Glucose Negative (Negative); Urine Ketone Negative (Negative); Urine Leukocyte Negative (Negative); Urine Nitrite Negative (Negative); Urine Occult Blood Negative (Negative); Urine Urobilinogen Negative (Neg - 1+)
== END 2024-05-21 12:03 | disposition home or self-care (01) ==
LOC: EMR 07:31
PROVIDERS: Physician Assistant Medical; EMERGENCY PHYSICIAN Emergency Medicine; FAMILY PHYSICIAN Internal Medicine
DX: N83.201 Unspecified ovarian cyst, right side (principal); R91.1 Solitary pulmonary nodule; E03.9 Hypothyroidism, unspecified; E78.00 Pure hypercholesterolemia, unspecified; I12.9 Hypertensive chronic kidney disease with stage 1 through stage 4 chronic kidney disease, or unspecified chronic kidney disease; N18.9 Chronic kidney disease, unspecified; Z85.828 Personal history of other malignant neoplasm of skin
CPT/HCPCS: 99284; 74177; 80053; 81003; 83690; 85025; Q9967

== ENCOUNTER → 2024-11-17 10:19 | Outpatient (REF) | payer OTHER, SELFPAY | LOC: RAD 10:19 | PROVIDERS: ATTENDING PHYSICIAN Internal Medicine; FAMILY PHYSICIAN Internal Medicine | DX: R91.1 Solitary pulmonary nodule (principal) | CPT/HCPCS: 71250 ==

== ENCOUNTER → 2024-12-17 10:21 | Outpatient (REF) | payer OTHER, SELFPAY ==
[2024-12-17 10:32] LABS: Glucose 94 mg/dl (70-99)
== END ==
LOC: PET 10:21
PROVIDERS: ATTENDING PHYSICIAN Internal Medicine
DX: R91.1 Solitary pulmonary nodule (principal); Z01.812 Encounter for preprocedural laboratory examination
CPT/HCPCS: 36415; 82947